=== PATIENT | male | born 1965 | race Caucasian/White ===

== ENCOUNTER 2017-09-16 04:08 | Observation (INO) | payer MEDICARE, OTHER ==
[2017-09-16] MEDS ORDERED: PANTOPRAZOLE INJ 80 MG in SODIUM CHLORIDE 0.9% INJ 100 ML IV SCH (04:11)
[2017-09-16] MEDS ORDERED: PANTOPRAZOLE INJ 80 MG in SODIUM CHLORIDE 0.9% INJ 35 ML IV ONE (04:11)
[2017-09-16] MEDS ORDERED: METOCLOPRAMIDE HCL 10 MG/2 ML VIAL IV PUSH ONE (04:15)
[2017-09-16] MEDS ORDERED: SODIUM CHLORIDE 0.9% FLUSH 10 ML FLUSH IVF PRN ×2 (04:15)
[2017-09-16] MEDS ORDERED: SODIUM CHLOR 0.9% 1000 ML INJ 1,000 ML IV SCH ×2 (04:15→05:42)
[2017-09-16] MEDS ORDERED: CLON0.5T PO (04:17)
[2017-09-16] MEDS ORDERED: METO25TA3 PO (04:17)
[2017-09-16] MEDS ORDERED: OMEP40CA2 (04:17)
[2017-09-16] MEDS ORDERED: VIAG100T PO (04:17)
[2017-09-16 04:18] VITALS: BP 170/110; PULSE 118; RESP 18; TEMP 98; O2SAT 97
--- NOTE | 2017-09-16 04:20 | PD ---
HPI Chief Complaint: Chest Pain Time Seen by Provider: 04:11 Travel History International Travel<30 days: No Contact w/Intl Traveler<30days: No Traveled to known affect area: No History of Present Illness HPI 51-year-old male presents to the emergency department by EMS transport for evaluation of chest pain and vomiting blood. Patient describes blood as red blood and coffee grounds. Patient with 3-4 episodes of vomiting at home reportedly large amounts. Patient states symptoms began just prior to arrival to the emergency department. Patient is very anxious and tremulous. Patient states he did smoke a cigarette just prior to coming into the emergency department. Patient does admit to history of dyslipidemia hypertension anxiety tobaccoism previous GI bleed. Patient states he has had extensive cardiac workup within the past year with stress test echocardiogram and cardiac enzymes. Patient did not have a cardiac catheterization. Reportedly his status were negative. Patient was briefly placed on a statin for his dyslipidemia but had adverse reaction to this medicine and no longer takes any statin medications. Patient continues to smoke cigarettes. Patient also reports upper endoscopy and lower endoscopy within the past 3 months that showed Hall's esophagitis but was otherwise unremarkable. Patient does not recall a history of esophageal varices or being told about esophageal varices. No prior history of pancreatitis. No syncope or near syncope. Patient is unable to identify exacerbating or alleviating factors. Pain is rated as moderate to severe. Patient took all of his medications approximately 8 PM which includes sildenafil for erectile dysfunction. Patient discusses referred pain to the left upper extremity does not report any neck jaw back shoulder arm or mid scapular referred pain. Patient is mildly diaphoretic but no report of shortness of breath. Patient reports his primary care is through the [facility]. [facility] Past Medical History Narrative Medical Hypertension dyslipidemia GI bleed upper endoscopy lower endoscopy stress test echocardiogram alcohol use; nursing notes reviewed Social History Tobacco Use: Yes Allergies-Medications (Allergen,Severity, Reaction): Coded Allergies: [id number] Reductase Inhibitor (Verified Allergy, Unknown, 09/16/17) fluoxetine (Verified Allergy, Unknown, 09/16/17) nystatin (Verified Allergy, Unknown, 09/16/17) Reported Meds & Prescriptions Reported Meds & Active Scripts Active Reported Omeprazole 40 Mg Cap 40 Mg DAILY Viagra (Sildenafil Citrate) 100 Mg Tab 100 Mg PO DAILY PRN Clonazepam 0.5 Mg Tab 0.5 Mg PO BID Metoprolol Tartrate 25 Mg Tab 12.5 Mg PO BID Review of Systems Except as stated in HPI: all other systems reviewed are Neg General / Constitutional: No: Fever HENT: No: Congestion Cardiovascular: Positive: Chest Pain or Discomfort, Diaphoresis Respiratory: No: Shortness of Breath Gastrointestinal: Positive: Nausea, Vomiting, Hematemesis, No: Abdominal Pain, Hematochezia Genitourinary: No: Decreased Urinary Output Musculoskeletal: No: Pain Skin: No Rash Neurologic: Positive: Weakness Psychiatric: Positive: Anxiety Hematologic/Lymphatic: No: Lymph Node Enlargement Physical Exam Narrative GENERAL: Well-developed well-nourished male in apparent distress anxious shaking but no respiratory distress GCS 15 SKIN: Warm and dry. HEAD: Normocephalic. EYES: No scleral icterus. No injection or drainage. NECK: Supple, trachea midline. No JVD or lymphadenopathy. CARDIOVASCULAR: Increased regular rate and rhythm without murmurs, gallops, or rubs. RESPIRATORY: Breath sounds equal bilaterally. No accessory muscle use. GASTROINTESTINAL: Abdomen soft, non-tender, nondistended. MUSCULOSKELETAL: No cyanosis, or edema. BACK: Nontender without obvious deformity. No CVA tenderness. Data Data Last Documented VS Vital Signs Date Time Temp Pulse Resp B/P (MAP) Pulse Ox O2 Delivery O2 Flow Rate FiO2 09/16/17 04:20 118 09/16/17 04:18 98.0 18 170/110 (130) 97 Orders Orders Electrocardiogram (09/16/17 04:11) Ckmb (Isoenzyme) Profile (09/16/17 04:11) Complete Blood Count With Diff (09/16/17 04:11) Comprehensive Metabolic Panel (09/16/17 04:11) Magnesium (Mg) (09/16/17 04:11) Prothrombin Time / Inr (Pt) (09/16/17 04:11) Act Partial Throm Time (Ptt) (09/16/17 04:11) Troponin I (09/16/17 04:11) Lipase (09/16/17 04:11) Chest, Single Ap (09/16/17 04:11) Ecg Monitoring (09/16/17 04:11) Bilateral Bp Monitoring (09/16/17 04:11) Iv Access Insert/Monitor (09/16/17 04:11) Oximetry (09/16/17 04:11) Oxygen Administration (09/16/17 04:11) Sodium Chloride 0.9% Flush (Ns Flush) (09/16/17 04:15) Alcohol (Ethanol) (09/16/17 04:11) Ammonia (09/16/17 04:11) Type And Screen (09/16/17 04:11) Sodium Chloride 0.9% Flush (Ns Flush) (09/16/17 04:15) Sodium Chloride 0.9... W/Pantoprazole In (09/16/17 04:11) Sodium Chloride 0.9... W/Pantoprazole In (09/16/17 04:11) Metoclopramide Inj (Reglan Inj) (09/16/17 04:15) Sodium Chlor 0.9% 1000 Ml Inj (Ns 1000 M (09/16/17 04:15) CKMB (09/16/17 04:25) CKMB% (09/16/17 04:25) Admit Order (Ed Use Only) (09/16/17 ) Loan Teller / Telemetry [id number] (09/16/17 05:45) Activity Oob With Assistance (09/16/17 05:45) Notify Dr: Other (09/16/17 05:45) Labs Laboratory Tests Test 09/16/17 04:25 White Blood Count 11.1 TH/MM3 Red Blood Count 5.41 MIL/MM3 Hemoglobin 16.6 GM/DL Hematocrit 48.4 % Mean Corpuscular Volume 89.6 FL Mean Corpuscular Hemoglobin 30.6 PG Mean Corpuscular Hemoglobin Concent 34.2 % Red Cell Distribution Width 14.3 % Platelet Count 214 TH/MM3 Mean Platelet Volume 7.9 FL Neutrophils (%) (Auto) 78.3 % Lymphocytes (%) (Auto) 12.7 % Monocytes (%) (Auto) 7.5 % Eosinophils (%) (Auto) 0.0 % Basophils (%) (Auto) 1.5 % Neutrophils # (Auto) 8.7 TH/MM3 Lymphocytes # (Auto) 1.4 TH/MM3 Monocytes # (Auto) 0.8 TH/MM3 Eosinophils # (Auto) 0.0 TH/MM3 Basophils # (Auto) 0.2 TH/MM3 CBC Comment DIFF FINAL Differential Comment Prothrombin Time 10.1 SEC Prothromb Time International Ratio 1.0 RATIO Activated Partial Thromboplast Time 23.5 SEC Blood Urea Nitrogen 7 MG/DL Creatinine 1.14 MG/DL Random Glucose 120 MG/DL Total Protein 8.8 GM/DL Albumin 4.6 GM/DL Calcium Level 9.6 MG/DL Magnesium Level 1.9 MG/DL Alkaline Phosphatase 91 U/L Aspartate Amino Transf (AST/SGOT) 24 U/L Alanine Aminotransferase (ALT/SGPT) 32 U/L Total Bilirubin 0.4 MG/DL Sodium Level 139 MEQ/L Potassium Level 3.9 MEQ/L Chloride Level 100 MEQ/L Carbon Dioxide Level 19.7 MEQ/L Anion Gap 19 MEQ/L Estimat Glomerular Filtration Rate 67 ML/MIN Ammonia 36 MCMOL/L Total Creatine Kinase 142 U/L Creatine Kinase MB 0.7 NG/ML Troponin I LESS THAN 0.02 NG/ML Lipase 88 U/L Ethyl Alcohol Level 114 MG/DL MDM Medical Decision Making Medical Screen Exam Complete: Yes Emergency Medical Condition: Yes Medical Record Reviewed: Yes Interpretation(s) EKG sinus tachycardia rate 124 significant baseline artifact present but no obvious ST elevation or injury pattern Last Impressions Chest X-Ray 09/16/17 041 Signed Impressions: CONCLUSION: No active disease. CBC & BMP Diagram 09/16/17 04:25 Total Protein 8.8 H, Albumin 4.6, Calcium Level 9.6, Magnesium Level 1.9, Alkaline Phosphatase 91, Aspartate Amino Transf (AST/SGOT) 24, Alanine Aminotransferase (ALT/SGPT) 32, Total Bilirubin 0.4 Vital Signs Date Time Temp Pulse Resp B/P (MAP) Pulse Ox O2 Delivery O2 Flow Rate FiO2 09/16/17 04:20 118 09/16/17 04:18 98.0 118 18 170/110 (130) 97 Ammonia level: 36 mildly elevated Serum alcohol: 114, elevated Differential Diagnosis Chest pain, ACS, OR, PE, GI bleed, gastritis, peptic ulcer disease, duodenitis, pancreatitis, alcohol hepatitis, cirrhosis related coagulopathy, metabolic encephalopathy, alcohol withdrawal Narrative Course Patient placed on hourly team members continuous pulse oximetry and IV access obtained; patient given maintenance IV fluids 100 cc an hour. In view of complaint of vomiting red blood and coffee grounds patient will not be administered aspirin at this time in view of taking sildenafil within the past 6 hours will not give him nitroglycerin; patient given dose of Reglan 10 mg IV Protonix bolus and infusion is IV fluids normal saline at 100 cc/h. Stat EKG performed shows sinus tachycardia rate 124 marked artifact secondary to patient' s underlying tremor but no acute ST elevation injury pattern or ectopy identified. CBC with automated differential values in normal range At 5:34 AM patient is no longer tachycardic mild hypertension lab values are resulted troponin I is less than 0.02, not elevated total CK is within normal range; chemistries are found to be grossly within normal limits; mild elevation of serum ammonia 37; alcohol level is 114; bicarb is decreased at 19 with an elevated anion gap most likely alcohol and vomiting related; patient receiving bolus of normal saline; plan will be observation admission for serial hemoglobin and serial cardiac enzyme suspect that chest pain is actually related to esophageal spasm and referred pain from alcohol gastritis. Vomiting has diminished since arriving to the emergency department and after the administration of Reglan. After patient's case discussed with on-call medicine and with the patient for observation admission the patient now says he wants to leave AGAINST MEDICAL ADVICE detailed discussion regarding risk benefit and risk of discussed with the patient was significant other at bedside patient will sign out AGAINST MEDICAL ADVICE is refusing to stay for admission. AMA: The risks of leaving against medical advice without further evaluation treatment were discussed with the patient. These risks include cardiac dysfunction, cardiac dysrhythmia, possible heart attack, possible stroke or . The patient indicated understanding of these risks and appeared to have the capacity to make this decision. [facility] Point of Care Internal Pos. & Neg. Controls: Passed Fecal Specimen Occult Blood: Negative Gastric Specimen Occult Blood: Positive (trace) Physician Communication Physician Communication call placed to [facility] service Diagnosis Primary Impression: Alcoholic gastritis with bleeding Qualified Codes: K29.21 - Alcoholic gastritis with bleeding Additional Impressions: Chest pain Qualified Codes: R07.9 - Chest pain, unspecified Hyperammonemia H/O anxiety disorder Left against medical advice Admitting Information Admitting Physician Requests: Observation Disposition: AGAINST MEDICAL ADVICE Condition: Stable Brooklyn Kaur MD Sep 16, 2017 04:20
[2017-09-16 04:46] LABS: AUTOMATED NEUTROPHIL # 8.7 TH/MM3 (1.8-7.7); BASOPHIL # 0.2 TH/MM3 (0-0.2); BASOPHIL % 1.5 % (0.0-2.0); HEMATOCRIT 48.4 % (39.0-51.0); HEMOGLOBIN 16.6 GM/DL (13.0-17.0); LYMPH % 12.7 % (9.0-44.0); LYMPHOCYTE # 1.4 TH/MM3 (1.0-4.8); MEAN CELL VOLUME 89.6 FL (80.0-100.0); MEAN CORPUSCULAR HEMOGLOBIN 30.6 PG (27.0-34.0); MEAN CORPUSCULAR HGB CONC 34.2 % (32.0-36.0); MEAN PLATELET VOLUME 7.9 FL (7.0-11.0); MONO % 7.5 % (0.0-8.0); MONOCYTE # 0.8 TH/MM3 (0-0.9); NEUT % 78.3 % (16.0-70.0); PLATELET COUNT 214 TH/MM3 (150-450); RED BLOOD COUNT 5.41 MIL/MM3 (4.50-5.90); RED CELL DISTRIBUTION WIDTH 14.3 % (11.6-17.2); WHITE BLOOD COUNT 11.1 TH/MM3 (4.0-11.0)
[2017-09-16 05:09] LABS: PROTHROMBIN TIME - PATIENT 10.1 SEC (9.8-11.6)
[2017-09-16 05:12] LABS: ALT (GPT) 32 U/L (12-78)
[2017-09-16 05:15] LABS: ALKALINE PHOSPHATASE 91 U/L (45-117); TOTAL BILIRUBIN ADULT 0.4 MG/DL (0.2-1.0); TOTAL PROTEIN 8.8 GM/DL (6.4-8.2); TROPONIN I LESS THAN 0.02 NG/ML (0.02-0.05)
[2017-09-16 05:26] LABS: ALBUMIN 4.6 GM/DL (3.4-5.0); AST (GOT) 24 U/L (15-37); BICARBONATE 19.7 MEQ/L (21.0-32.0); BLOOD UREA NITROGEN 7 MG/DL (7-18); CALCIUM 9.6 MG/DL (8.5-10.1); CHLORIDE 100 MEQ/L (98-107); CREATININE 1.14 MG/DL (0.60-1.30); GLOMERULAR FILTRATION RATE 67 ML/MIN (>89); GLUCOSE,RANDOM 120 MG/DL (74-106); MAGNESIUM 1.9 MG/DL (1.5-2.5); SODIUM (NA) 139 MEQ/L (136-145)
[2017-09-16] MEDS ORDERED: LACTULOSE SYRUP 20 GM/30 ML CUP PO PRN (05:45)
[2017-09-16] MEDS ORDERED: FLUMAZENIL 0.5 MG/5 ML VIAL IV PUSH PRN (05:45)
[2017-09-16] MEDS ORDERED: MAGNESIUM HYDROXIDE SUSP 30 ML CUP PO PRN (05:45)
[2017-09-16] MEDS ORDERED: LORazepam 2 MG/ML VIAL IV PUSH PRN ×4 (05:45)
[2017-09-16] MEDS ORDERED: NALOXONE HCL 0.4 MG/ML AMP IV PUSH PRN (05:45)
[2017-09-16] MEDS ORDERED: SENNOSIDES 8.6 MG TAB PO PRN (05:45)
[2017-09-16] MEDS ORDERED: LORazepam 1 MG TAB PO PRN (05:45)
[2017-09-16] MEDS ORDERED: LORazepam 2 MG TAB PO PRN (05:45)
[2017-09-16] MEDS ORDERED: ONDANSETRON HCL 4 MG/2 ML VIAL IVP PRN (05:45)
[2017-09-16] MEDS ORDERED: BISACODYL 10 MG SUPP RECTAL PRN (05:45)
[2017-09-16] MEDS ORDERED: SODIUM CHLORIDE 0.9% FLUSH 10 ML FLUSH IV FLUSH PRN (05:45)
[2017-09-16] MEDS ORDERED: ACETAMINOPHEN 325 MG TAB PO PRN (05:45)
--- NOTE | 2017-09-16 06:00 | RADRPT ---
EXAM DATE: 09/16/2017 5:57 AM EDT AGE/SEX: 51 years / Male INDICATIONS: Chest pain. CLINICAL DATA: This is the patient's initial encounter. Patient reports that signs and symptoms have been present for 1 day and indicates a pain score of 10/10. MEDICAL/SURGICAL HISTORY: Hypertension. Hypercholesterolemia. Chronic obstructive pulmonary d isease. Smoker. . Hiatal hernia. Right eye. COMPARISON: No prior exams available for comparison. FINDINGS: A single AP view of the chest demonstrates the lungs to be symmetrically aerated without evidence of mass, infiltrate or effusion. The cardiomediastinal contours are unremarkable. Osseous structures a re intact. CONCLUSION: No active disease. Electronically signed by: Sandoval Ko MD 09/16/2017 5:59 AM EDT
[2017-09-16] MEDS ORDERED: METOPROLOL TARTRATE 25 MG TAB PO SCH (09:00)
[2017-09-16] MEDS ORDERED: SODIUM CHLORIDE 0.9% FLUSH 10 ML FLUSH IV FLUSH SCH (09:00)
[2017-09-16] MEDS ORDERED: DOCUSATE SODIUM 50 MG/SENNA 8.6 MG TAB PO SCH (09:00)
--- NOTE | 2017-09-16 15:22 | EKG ---
Date Performed: 09/16/2017 Time Performed: 04:04:33 PTAGE: 51 years EKG: SINUS TACHYCARDIA ABNORMAL RHYTHM ECG INTERPRETATION BASED ON A DEFAULT AGE OF 40 YEARS NO PREVIOUS TRACING DOCTOR: Coreen Drake Interpretating Date/Time 09/16/2017 15:21:53
== END 2017-09-16 06:02 | disposition left against medical advice (07) ==
LOC: NEPC 04:08 → EDBD 04:08 → NEDA 05:46
PROVIDERS: ADMIT Family Medicine; ATTEND Family Medicine
DX: K29.21 Alcoholic gastritis with bleeding (principal); R07.89 Other chest pain; E72.20 Disorder of urea cycle metabolism, unspecified; I10 Essential (primary) hypertension; E78.5 Hyperlipidemia, unspecified; N52.9 Male erectile dysfunction, unspecified; R00.0 Tachycardia, unspecified; R61 Generalized hyperhidrosis; F41.9 Anxiety disorder, unspecified; F17.210 Nicotine dependence, cigarettes, uncomplicated; Z79.899 Other long term (current) drug therapy
CPT/HCPCS: 71045; 80053; 80307; 82140; 82550; 82552; 83690; 83735; 84484; 85025; 85610; 85730; 86850; 86900; 86901; 93005; 96361; 96374; 96375; 99285; C9113; J2765; J7030